=== PATIENT | male | born 2000 | race Native Hawaiian/Other Pacific Islander ===

== ENCOUNTER 2020-08-29 16:17 | Emergency (ER) | payer MEDICAID, OTHER ==
[~2020-08-29] VITALS: Ht 188 cm; Wt 109.3 kg
[2020-08-29 16:28] VITALS: BP 146/90
--- NOTE | 2020-08-29 16:47 | NUR ---
BRIONNA ANGULO AT BEDSIDE EVALUATING PT.
[2020-08-29] MEDS ORDERED: NACL 0.9% 500 ML IV ONE (16:50)
[2020-08-29] MEDS ORDERED: ONDANSETRON 4 MG/2 ML VIAL IVP ONE (16:50)
--- NOTE | 2020-08-29 17:09 | NUR ---
XR AT BEDSIDE.
[2020-08-29 17:35] LABS: BASOPHILS % (AUTO) 0.4 % (0.0-2.0); EOSINOPHILS # (AUTO) 0.2 K/uL (0-0.4); EOSINOPHILS % (AUTO) 2.9 % (0.0-4.0); HEMATOCRIT 43.2 % (36-52); HEMOGLOBIN 14.5 g/dL (12.0-18.0); LYMPHOCYTES # (AUTO) 1.5 K/uL (2.0-11.5); LYMPHOCYTES % (AUTO) 23.6 % (20.5-51.1); MEAN CORPUSCULAR HEMOGLOBIN 29 pg (27-31); MEAN CORPUSCULAR HGB CONC 34 g/dL (33-37); MEAN CORPUSCULAR VOLUME 85.1 fL (80-94); MONOCYTES # (AUTO) 0.4 K/uL (0.8-1.0); MONOCYTES % (AUTO) 7.2 % (1.7-9.3); NEUTROPHILS # (AUTO) 4.1 K/uL (1.8-7.7); NEUTROPHILS % (AUTO) 65.9 % (42.2-75.2); PLATELET COUNT (AUTO) 248 K/uL (140-450); RED BLOOD CELL COUNT(AUTO) 5.08 MIL/uL (4.20-6.10); RED CELL DISTRIBUTION WIDTH 12.9 % (11.6-13.7); WHITE BLOOD COUNT (AUTO) 6.2 K/uL (4.5-11.0)
--- NOTE | 2020-08-29 17:37 | NUR ---
20 Y/M PRESENTS TO ED FOR N/V X1 DAY, COFFEE GROUND EMESIS AND 8/10 THROAT DISCOMFORT AND EPIGASTRIC PAIN FROM VOMITING. DENIES FEVER OR DIARRHEA, OR ANY COVID SYMPTOMS. PT A &O X 4. RR EVEN AND UNLABORED. ABD SOFT. DENIES DYSURIA. MED HX: DENIES
[2020-08-29 17:47] LABS: ALBUMIN 4.3 g/dL (3.4-5.0); ANION GAP 13.5 (8-16); CARBON DIOXIDE 27.1 mmol/L (21-32); CREATININE 1.2 mg/dL (0.6-1.3); POTASSIUM 3.6 mmol/L (3.5-5.1); TOTAL BILIRUBIN 0.3 mg/dL (0.0-1.0)
[2020-08-29 18:11] VITALS: BP 135/72
--- NOTE | 2020-08-29 18:12 | NUR ---
Patient discharged with v/s stable. Written and verbal after care instructions given and explained. Patient alert, oriented and verbalized understanding of instructions. Ambulatory with steady gait. All questions addressed prior to discharge. ID band removed. Patient advised to follow up with PMD. Rx of MYLANTA, OMEPRAZOLE AND ZOFRAN given. Patient educated on indication of medication including possible reaction and side effects. Opportunity to ask questions provided and answered.
== END 2020-08-29 18:12 | disposition home or self-care (01) ==
LOC: MED 16:17
DX: R11.2 Nausea with vomiting, unspecified (principal); R10.13 Epigastric pain; R07.0 Pain in throat
CPT/HCPCS: 36415; 71045; 80053; 81002; 85025; 96361; 96374; 99284; J2405; J7030

== ENCOUNTER 2020-09-20 15:58 | Emergency (ER) | payer OTHER ==
[~2020-09-20] VITALS: Ht 190.5 cm; Wt 108.9 kg
[2020-09-20 16:05] VITALS: BP 126/90
[2020-09-20] MEDS ORDERED: NAPR-54 PO (16:49)
[2020-09-20] MEDS ORDERED: METH750T5 PO (16:49)
[2020-09-20] MEDS ORDERED: KETOROLAC 60 MG/2 ML VIAL IM ONE (17:00)
[2020-09-20 17:13] VITALS: BP 126/90
== END 2020-09-20 17:13 | disposition home or self-care (01) ==
LOC: MED 15:58
DX: M25.552 Pain in left hip (principal); M79.602 Pain in left arm; Z79.899 Other long term (current) drug therapy
CPT/HCPCS: 73502; 96372; 99283; J1885